=== PATIENT | male | born 1945 | race Caucasian/White ===

== ENCOUNTER 2018-05-22 10:17 | Emergency (ER) | payer OTHER ==
[2018-05-22] MEDS ORDERED: Diphtheria,Pertussis(Acell),Tetanus Vaccine 0.5 ML SDV IM ONE (10:48)
--- NOTE | 2018-05-22 11:00 | EDM.PDOC ---
ED HPI GENERAL MEDICAL PROBLEM - General Chief Complaint: Head Injury Stated Complaint: HEAD INJURY Time Seen by Provider: 05/22/18 10:25 Source of Information: Reports: Patient, Family History Limitations: Reports: No Limitations - History of Present Illness INITIAL COMMENTS - FREE TEXT/NARRATIVE: 72-year-old male history of hypertension presenting with a chief complaint head injury. Patient was filling up his vehicle at the gas station when he attempted to step over the line caught his foot and tripped falling backwards. He had no loss of consciousness. No confusion nausea or vomiting afterwards. Preceding the fall the patient had no chest pain shortness of breath dizziness or visual changes it was a purely mechanical fall. His corroborates the entire history. Patient is not anticoagulated. His only medication is metoprolol no recent dose changes. Patient is currently complaining of very mild head pain that is centered around the crown of the head mild severity and nonradiatingassociated visual changes or focal neurologic deficits. Right Head Pain Score (Numeric/FACES): 3 - Related Data Allergies Allergy/AdvReac Type Severity Reaction Status Date / Time amoxicillin [From Augmentin] Allergy Rash Verified 05/22/18 10:33 clavulanic acid Allergy Rash Verified 05/22/18 10:33 [From Augmentin] Home Meds: Home Meds Bp Med. 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 Social & Family History - Tobacco Use Smoking Status *Q: Never Smoker - Caffeine Use Caffeine Use: Reports: Coffee - Recreational Drug Use Recreational Drug Use: No ED ROS GENERAL - Review of Systems Review Of Systems: See Below Constitutional: Reports: No Symptoms HEENT: Reports: No Symptoms Respiratory: Reports: No Symptoms Cardiovascular: Reports: No Symptoms GI/Abdominal: Reports: No Symptoms : Reports: No Symptoms Musculoskeletal: Reports: No Symptoms Skin: Reports: Wound Neurological: Reports: Headache Psychiatric: Reports: No Symptoms ED EXAM, HEAD INJURY - Physical Exam Exam: See Below Exam Limited By: No Limitations General Appearance: Alert, No Apparent Distress Head: Other (Superficial abrasion overlying the right superior aspect of the parietal bone no laceration noted deep in her structure damage. 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 II-XII nml As Tested, No Motor/Sensory Deficits, Normal Mood/ Affect, Oriented x 3 Skin: Normal Color, Warm/Dry Course - Vital Signs Last Recorded V/S: Last Vital Signs Temp 36.4 C 05/22/18 10:34 Pulse 76 05/22/18 10:34 Resp 20 05/22/18 10:34 BP 172/100 H 05/22/18 10:34 Pulse Ox 96 05/22/18 10:34 - Orders/Labs/Meds Orders: Active Orders 24 hr Category Date Time Status Vaccines to be Administered [RC] PER UNIT ROUTINE Care 05/22/18 10:49 Active Meds: Medications Discontinued Medications Generic Name Dose Route Start Last Admin Trade Name Jesus PRN Reason Stop Dose Admin Diphtheria/Tetanus/Acell Pertussis 0.5 ml 05/22/18 10:48 Adacel IM 05/22/18 10:49 .ONCE ONE - Re-Assessments/Exams Free Text/Narrative Re-Assessment/Exam: 05/22/18 10:54 72 y M presenting with head injury. On exam the patient is A&O 3, non-focal neurologic exam. Had a superficial abrasion to scalp that does not need to be repaired. The wound was thoroughly cleansed. His tetanus was updated. I had a long conversation with the patient and his about the benefits/risks of CT head imaging. The patient's mechanism is low risk, he is not anticoagulated and he has not had any concerning signs or symptoms. Departure - Departure Time of Disposition: 11:00 Disposition: DC/Tfer W/I Hosp To Swing 61 Condition: Good Clinical Impression: Scalp laceration - Discharge Information *PRESCRIPTION DRUG MONITORING PROGRAM REVIEWED*: No *COPY OF PRESCRIPTION DRUG MONITORING REPORT IN PATIENT LIZETH: No Instructions: Head Injury, Adult, [id number] Referrals: PCP,Not In Area [Primary Care Provider] - Forms: ED Department Discharge Additional Instructions: He was seen in the emergency department today for head injury. At this time there is not appear to be any serious life-threatening injury. There is a free to go home. Your abrasion to her scalp does not require repair. Please engage in good wound care over the next week to 2 weeks. If at any time for the next couple days U have new or worsening headache, visual changes, confusion, nausea or vomiting that is severe please return to the nearest emergency department for reevaluation. - My Orders Last 24 Hours: My Active Orders 05/22/18 10:49 Vaccines to be Administered [RC] PER UNIT ROUTINE - Assessment/Plan Last 24 Hours: My Active Orders 05/22/18 10:49 Vaccines to be Administered [RC] PER UNIT ROUTINE
== END 2018-05-22 11:15 | disposition swing bed (61) ==
LOC: JD.ED 10:17
DX: S01.01XA Laceration without foreign body of scalp, initial encounter (principal); I10 Essential (primary) hypertension; Z88.1 Allergy status to other antibiotic agents; Z88.8 Allergy status to other drugs, medicaments and biological substances; Z79.899 Other long term (current) drug therapy; W01.0XXA Fall on same level from slipping, tripping and stumbling without subsequent striking against object, initial encounter; Y93.89 Activity, other specified; Y99.0 Civilian activity done for income or pay
CPT/HCPCS: 90471; 90715; 99283; 99283-25